=== PATIENT | female | born 1955 | race Hispanic/Latino ===

== ENCOUNTER 2018-02-14 15:48 | Inpatient (IN) | payer OTHER ==
[~2018-02-14] VITALS: Ht 152.4 cm; Wt 89.7 kg
[2018-02-14 16:47] LABS: BASOPHILS % (AUTO) 0.5 % (0.0-5.0); EOSINOPHILS % (AUTO) 0.5 % (0.0-8.0); HEMATOCRIT 35.9 % (36-48); LYMPHOCYTES % (AUTO) 12.5 % (21.0-51.0); MEAN CORPUSCULAR HEMOGLOBIN 27.7 pg (27.0-33.0); MEAN CORPUSCULAR HGB CONC 32.3 g/dL (32.0-36.0); MEAN CORPUSCULAR VOLUME 85.8 fL (79-99); MONOCYTES % (AUTO) 8.9 % (3.0-13.0); NEUTROPHILS % (AUTO) 77.6 % (40.0-77.0); PLATELET COUNT (AUTO) 312 K/uL (130-400); RED BLOOD CELL COUNT(AUTO) 4.18 MIL/uL (4.00-5.50); RED CELL DISTRIBUTION WIDTH 13.4 % (11.0-15.5); WHITE BLOOD COUNT (AUTO) 14.6 K/uL (4.8-10.8)
[2018-02-14 16:53] LABS: APPEARANCE,URINE Clear (CLEAR); BILIRUBIN,URINE Negative (NEGATIVE); COLOR,URINE Yellow (YELLOW); GLUCOSE, URINE (UA) >=1000 mg/dL (NEGATIVE); KETONES,URINE Negative (NEGATIVE); LEUKOCYTE ESTERASE ,URINE Negative (NEGATIVE); NITRATE,URINE Negative (NEGATIVE); OCCULT BLOOD,URINE Negative (NEGATIVE); PROTEIN,URINE POS 1+ (NEGATIVE)
[2018-02-14] MEDS ORDERED: SODIUM CHLORIDE 0.9% 1000ML 1,000 ML IV ONE (16:57)
[2018-02-14] MEDS ORDERED: ZOSYN 3.375GM+NS 50ML 50 ML IV ONE (16:57)
[2018-02-14] MEDS ORDERED: ONDANSETRON HCL 4 MG/2 ML VIAL ONE (16:57)
[2018-02-14] MEDS ORDERED: MORPHINE SULFATE 4 MG/1ML SYG ONE (16:58)
[2018-02-14] MEDS ORDERED: SODIUM CHLORIDE 0.9% 50 ML IV ONE (16:58)
[2018-02-14 17:01] LABS: CREATININE 0.7 mg/dL (0.5-1.5); POTASSIUM 3.8 mmol/L (3.5-5.1)
[2018-02-14 17:07] LABS: ALBUMIN 2.7 g/dL (3.5-5.0); BILIRUBIN,TOTAL 0.3 mg/dL (0.2-1.0); TOTAL PROTEIN, SERUM 7.3 g/dL (6.0-8.3)
[2018-02-14 17:25] LABS: BACTERIA,URINE None Seen /HPF (None Seen); RBC,URINE None Seen /HPF (0-1); WBC,URINE None Seen /HPF (0-1); YEAST,URINE BUDDING Few /HPF (None Seen)
[2018-02-14 17:50] LABS: ERYTHROCYTE SEDIMENTATION RATE 77 MM/HR (0-30)
[2018-02-14] MEDS ORDERED: DEXTROSE 50%-WATER 50 ML DISP.SYRIN IV PRN (18:15)
[2018-02-14] MEDS ORDERED: GLUCAGON 1MG KIT 1 MG ML IM PRN (18:15)
[2018-02-14] MEDS ORDERED: ONDANSETRON HCL 4 MG/2 ML VIAL IV PRN (18:15)
[2018-02-14] MEDS ORDERED: VANCOMYCIN PROTOCOL PER PHARMACY IV SCH (18:30)
[2018-02-14] MEDS ORDERED: COMPOUND IV REFRIGERATED 1 EACH IVSOLN MISC PRN (18:45)
[2018-02-14 19:16] LABS: HEMATOCRIT 32.6 % (36-48); MEAN CORPUSCULAR HEMOGLOBIN 28.4 pg (27.0-33.0); MEAN CORPUSCULAR HGB CONC 33.2 g/dL (32.0-36.0); MEAN CORPUSCULAR VOLUME 85.5 fL (79-99); PLATELET COUNT (AUTO) 278 K/uL (130-400); RED BLOOD CELL COUNT(AUTO) 3.81 MIL/uL (4.00-5.50); RED CELL DISTRIBUTION WIDTH 13.5 % (11.0-15.5); WHITE BLOOD COUNT (AUTO) 13.2 K/uL (4.8-10.8)
[2018-02-14 19:36] LABS: HEMOGLOBIN A1C 10.3 % (4.0-6.0)
[2018-02-14 19:40] VITALS: BP 134/77
[2018-02-14 20:23] LABS: ALBUMIN 2.3 g/dL (3.5-5.0); BILIRUBIN,TOTAL 0.4 mg/dL (0.2-1.0); CREATININE 0.6 mg/dL (0.5-1.5); POTASSIUM 3.6 mmol/L (3.5-5.1); TOTAL PROTEIN, SERUM 6.3 g/dL (6.0-8.3)
[2018-02-14] MEDS ORDERED: EZET10TA26 PO (20:29)
[2018-02-14] MEDS ORDERED: AMLO10TA6 PO (20:29)
[2018-02-14] MEDS ORDERED: ATOR40TA71 PO (20:29)
[2018-02-14] MEDS ORDERED: ASPI-1181 PO (20:29)
[2018-02-14] MEDS ORDERED: GLIP-220 PO (20:29)
[2018-02-14] MEDS ORDERED: METF-445 PO (20:29)
[2018-02-14] MEDS ORDERED: ERGO500014 PO (20:30)
[2018-02-14] MEDS: INSULIN HUMULIN R 100 UNIT/ML 3ML SQ SCH (21:00)
[2018-02-14] MEDS ORDERED: ZOSYN 3.375GM+NS 50ML 50 ML IV SCH (21:00)
[2018-02-14] MEDS: ACETAMINOPHEN 325 MG TAB PO PRN (21:22)
[2018-02-14] MEDS: VANCOMYCIN 1.25 GM in SODIUM CHLORIDE 0.9% 250 ML IV SCH (21:22)
[2018-02-14] MEDS: SODIUM CHLORIDE 0.9% 1000ML 1,000 ML IV SCH (21:22)
[2018-02-14 23:07] VITALS: BP 125/67
[2018-02-15] MEDS: SODIUM CHLORIDE 0.9% 1000ML 1,000 ML IV SCH ×3 (02:28→18:46)
[2018-02-15 03:22] VITALS: BP 137/72
[2018-02-15] MEDS: ACETAMINOPHEN 325 MG TAB PO PRN ×4 (03:25→18:48)
[2018-02-15 04:34] LABS: BASOPHILS % (AUTO) 1.1 % (0.0-5.0); HEMATOCRIT 30.6 % (36-48); LYMPHOCYTES % (AUTO) 20.4 % (21.0-51.0); MEAN CORPUSCULAR HEMOGLOBIN 29.2 pg (27.0-33.0); MEAN CORPUSCULAR HGB CONC 34.3 g/dL (32.0-36.0); MEAN CORPUSCULAR VOLUME 85.1 fL (79-99); MONOCYTES % (AUTO) 11.4 % (3.0-13.0); NEUTROPHILS % (AUTO) 65.1 % (40.0-77.0); PLATELET COUNT (AUTO) 311 K/uL (130-400); RED CELL DISTRIBUTION WIDTH 13.1 % (11.0-15.5); WHITE BLOOD COUNT (AUTO) 10.5 K/uL (4.8-10.8)
[2018-02-15 04:56] LABS: ALBUMIN 2.1 g/dL (3.5-5.0); BILIRUBIN,TOTAL 0.3 mg/dL (0.2-1.0); CREATININE 0.6 mg/dL (0.5-1.5); POTASSIUM 4.4 mmol/L (3.5-5.1); TOTAL PROTEIN, SERUM 5.9 g/dL (6.0-8.3)
[2018-02-15] MEDS: INSULIN HUMULIN R 100 UNIT/ML 3ML SQ SCH ×3 (05:54→16:30)
[2018-02-15 07:49] VITALS: BP 121/67
[2018-02-15] MEDS ORDERED: SODIUM CHLORIDE 0.9% 50 ML IV ONE (08:07)
[2018-02-15] MEDS: PANTOPRAZOLE SODIUM 40 MG TABLET.DR PO SCH (08:20)
[2018-02-15] MEDS: ENOXAPARIN SODIUM 30 MG/0.3 ML SQ SCH (08:21)
[2018-02-15] MEDS: ZOSYN 3.375GM+NS 50ML 50 ML IV SCH ×2 (08:22→16:48)
[2018-02-15] MEDS: VANCOMYCIN 1.25 GM in SODIUM CHLORIDE 0.9% 250 ML IV SCH ×2 (09:23→20:43)
[2018-02-15 11:00] VITALS: BP 122/70
[2018-02-15 15:59] VITALS: BP 137/78
[2018-02-15] MEDS: GLIPIZIDE XL 10MG TAB PO SCH (16:30)
[2018-02-15 19:44] VITALS: BP 139/72
[2018-02-15] MEDS: INSULIN GLARGINE 100 UNITS/ML 10 ML VIAL SQ SCH (20:40)
[2018-02-15] MEDS: INSULIN LISPRO 100 UNIT/ML 3ML SQ SCH (20:42)
[2018-02-15] MEDS: ATORVASTATIN CALCIUM 40 MG TABLET PO SCH (20:43)
[2018-02-15 23:19] VITALS: BP 131/70
[2018-02-16] MEDS: ZOSYN 3.375GM+NS 50ML 50 ML IV SCH ×3 (00:32→17:00)
[2018-02-16] MEDS: ACETAMINOPHEN 325 MG TAB PO PRN ×3 (02:02→18:00)
[2018-02-16 03:36] VITALS: BP 133/64
[2018-02-16 04:48] LABS: HEMATOCRIT 30.9 % (36-48); MEAN CORPUSCULAR HEMOGLOBIN 28.3 pg (27.0-33.0); MEAN CORPUSCULAR HGB CONC 33.2 g/dL (32.0-36.0); MEAN CORPUSCULAR VOLUME 85.1 fL (79-99); PLATELET COUNT (AUTO) 338 K/uL (130-400); RED BLOOD CELL COUNT(AUTO) 3.63 MIL/uL (4.00-5.50); RED CELL DISTRIBUTION WIDTH 13.4 % (11.0-15.5); WHITE BLOOD COUNT (AUTO) 9.8 K/uL (4.8-10.8)
[2018-02-16 04:57] LABS: CREATININE 0.7 mg/dL (0.5-1.5); CRP QUANTITATIVE 114.5 mg/L (0.00-9.0); POTASSIUM 3.5 mmol/L (3.5-5.1)
[2018-02-16 05:14] LABS: % IRON SATURATION 28.5 % (22-44)
[2018-02-16] MEDS: INSULIN LISPRO 100 UNIT/ML 3ML SQ SCH ×7 (06:29→21:00)
[2018-02-16] MEDS: SODIUM CHLORIDE 0.9% 1000ML 1,000 ML IV SCH (06:29)
[2018-02-16] MEDS: GLIPIZIDE XL 10MG TAB PO SCH ×2 (06:30→17:57)
[2018-02-16 08:04] VITALS: BP 170/89
[2018-02-16] MEDS: AMLODIPINE BESYLATE 5 MG TAB PO SCH (08:41)
[2018-02-16] MEDS: PANTOPRAZOLE SODIUM 40 MG TABLET.DR PO SCH (08:42)
[2018-02-16] MEDS: ASPIRIN 81 MG EC TAB PO SCH (08:42)
[2018-02-16] MEDS: ENOXAPARIN SODIUM 30 MG/0.3 ML SQ SCH (08:43)
[2018-02-16] MEDS: EZETIMIBE 10 MG TAB PO SCH (08:43)
[2018-02-16] MEDS: VANCOMYCIN 1.25 GM in SODIUM CHLORIDE 0.9% 250 ML IV SCH ×2 (08:43→20:13)
[2018-02-16 11:12] VITALS: BP 144/81
[2018-02-16] MEDS ORDERED: DIPH,PERTUSS(ACELL),TET VAC/PF 0.5 ML VIAL IM SCH (13:45)
[2018-02-16 16:22] VITALS: BP 171/77
[2018-02-16] MEDS ORDERED: LIDOCAINE HCL-MPF 1% 2ML VIAL IVP PRN (16:30)
[2018-02-16] MEDS ORDERED: POTASSIUM CHLORIDE 20MEQ/100ML 100 ML IV PRN (16:30)
[2018-02-16] MEDS ORDERED: POTASSIUM CHLORIDE 10% ELIXIR 20 MEQ/15 ML UDCUP PO PRN (16:30)
[2018-02-16] MEDS: POTASSIUM CHLORIDE 20 MEQ ERTAB PO PRN (18:00)
[2018-02-16 19:50] VITALS: BP 160/81
[2018-02-16] MEDS: ATORVASTATIN CALCIUM 40 MG TABLET PO SCH (20:13)
[2018-02-16] MEDS: INSULIN GLARGINE 100 UNITS/ML 10 ML VIAL SQ SCH (20:27)
[2018-02-17] VITALS (20 sets, daily range): BP systolic 128–176; BP diastolic 71–90
[2018-02-17] MEDS: ZOSYN 3.375GM+NS 50ML 50 ML IV SCH ×2 (00:03→09:50)
[2018-02-17] MEDS: ACETAMINOPHEN 325 MG TAB PO PRN (00:04)
[2018-02-17 06:09] LABS: BASOPHILS % (AUTO) 0.8 % (0.0-5.0); EOSINOPHILS % (AUTO) 4.4 % (0.0-8.0); HEMATOCRIT 33.7 % (36-48); LYMPHOCYTES % (AUTO) 18.4 % (21.0-51.0); MEAN CORPUSCULAR HEMOGLOBIN 28.9 pg (27.0-33.0); MEAN CORPUSCULAR HGB CONC 33.7 g/dL (32.0-36.0); MEAN CORPUSCULAR VOLUME 85.5 fL (79-99); MONOCYTES % (AUTO) 8.6 % (3.0-13.0); NEUTROPHILS % (AUTO) 67.8 % (40.0-77.0); PLATELET COUNT (AUTO) 418 K/uL (130-400); RED BLOOD CELL COUNT(AUTO) 3.93 MIL/uL (4.00-5.50); RED CELL DISTRIBUTION WIDTH 13.4 % (11.0-15.5); WHITE BLOOD COUNT (AUTO) 8.4 K/uL (4.8-10.8)
[2018-02-17 06:15] LABS: CREATININE 0.9 mg/dL (0.5-1.5)
[2018-02-17] MEDS: GLIPIZIDE XL 10MG TAB PO SCH ×2 (06:21→18:17)
[2018-02-17] MEDS: INSULIN LISPRO 100 UNIT/ML 3ML SQ SCH ×7 (06:35→21:35)
[2018-02-17] MEDS: ASPIRIN 81 MG EC TAB PO SCH (09:00)
[2018-02-17] MEDS: ENOXAPARIN SODIUM 30 MG/0.3 ML SQ SCH (09:00)
[2018-02-17] MEDS: PANTOPRAZOLE SODIUM 40 MG TABLET.DR PO SCH (09:00)
[2018-02-17] MEDS: EZETIMIBE 10 MG TAB PO SCH (09:00)
[2018-02-17] MEDS: AMLODIPINE BESYLATE 5 MG TAB PO SCH (09:49)
[2018-02-17] MEDS: VANCOMYCIN 1.25 GM in SODIUM CHLORIDE 0.9% 250 ML IV SCH (09:50)
[2018-02-17] MEDS: WATER FOR INJECTION,STERILE 20 ML VIAL IJ SCH (13:15)
[2018-02-17] MEDS: CEFTRIAXONE SODIUM 2 GM VIAL IVP SCH ×2 (13:15→14:00)
[2018-02-17] MEDS ORDERED: SODIUM CHLORIDE 0.9% 1000ML 1,000 ML IV ONE (13:55)
[2018-02-17] MEDS ORDERED: KETAMINE 50MG/ML SYRINGE 50 MG/ML DISP.SYRIN IV ONE (13:55)
[2018-02-17] MEDS ORDERED: PROPOFOL 10 MG/ML 20ML VIAL IV ONE ×2 (13:57→14:53)
[2018-02-17] MEDS ORDERED: LIDOCAINE PF 2% 5ML ABBOJECT ONE (13:57)
[2018-02-17] MEDS ORDERED: FENTANYL CITRATE PF 50 MCG/1 ML 2ML VIAL ONE (13:58)
[2018-02-17] MEDS: LIDOCAINE HCL 1% 20 ML VIAL ONE (14:37)
[2018-02-17] MEDS: BUPIVACAINE/PF 0.5% 30ML VIAL ONE (14:37)
[2018-02-17] MEDS ORDERED: MIDAZOLAM HCL 1 MG/ML 2ML VIAL ONE (14:41)
[2018-02-17] MEDS ORDERED: MORPHINE SULFATE 2 MG/ML 1ML SYG ONE (15:15)
[2018-02-17] MEDS: ATORVASTATIN CALCIUM 40 MG TABLET PO SCH (21:34)
[2018-02-17] MEDS: INSULIN GLARGINE 100 UNITS/ML 10 ML VIAL SQ SCH (21:36)
[2018-02-18 03:45] VITALS: BP 145/74
[2018-02-18 04:25] LABS: BASOPHILS % (AUTO) 0.6 % (0.0-5.0); EOSINOPHILS % (AUTO) 2.7 % (0.0-8.0); HEMATOCRIT 33.9 % (36-48); LYMPHOCYTES % (AUTO) 15.8 % (21.0-51.0); MEAN CORPUSCULAR HGB CONC 32.8 g/dL (32.0-36.0); MEAN CORPUSCULAR VOLUME 85.4 fL (79-99); MONOCYTES % (AUTO) 8.9 % (3.0-13.0); PLATELET COUNT (AUTO) 414 K/uL (130-400); RED BLOOD CELL COUNT(AUTO) 3.97 MIL/uL (4.00-5.50); RED CELL DISTRIBUTION WIDTH 13.2 % (11.0-15.5)
[2018-02-18 04:40] LABS: CREATININE 0.7 mg/dL (0.5-1.5); POTASSIUM 3.7 mmol/L (3.5-5.1)
[2018-02-18] MEDS: ACETAMINOPHEN 325 MG TAB PO PRN (06:05)
[2018-02-18] MEDS: INSULIN LISPRO 100 UNIT/ML 3ML SQ SCH ×7 (07:30→21:29)
[2018-02-18 07:45] VITALS: BP 140/73
[2018-02-18] MEDS: CLOPIDOGREL BISULFATE 75 MG TAB PO SCH (08:55)
[2018-02-18] MEDS: PANTOPRAZOLE SODIUM 40 MG TABLET.DR PO SCH (08:55)
[2018-02-18] MEDS: EZETIMIBE 10 MG TAB PO SCH (08:55)
[2018-02-18] MEDS: ASPIRIN 81 MG EC TAB PO SCH (08:55)
[2018-02-18] MEDS: AMLODIPINE BESYLATE 5 MG TAB PO SCH (08:56)
[2018-02-18] MEDS: ENOXAPARIN SODIUM 30 MG/0.3 ML SQ SCH (08:56)
[2018-02-18] MEDS: GLIPIZIDE XL 10MG TAB PO SCH ×2 (08:56→15:39)
[2018-02-18 11:21] VITALS: BP 132/82
[2018-02-18] MEDS: WATER FOR INJECTION,STERILE 20 ML VIAL IJ SCH (14:11)
[2018-02-18] MEDS: CEFTRIAXONE SODIUM 2 GM VIAL IVP SCH (14:11)
[2018-02-18] MEDS ORDERED: HYDROCODONE/ACETAMINOPHEN 5/325 MG TAB ONE (15:22)
[2018-02-18 16:29] VITALS: BP 136/76
[2018-02-18] MEDS ORDERED: HYDROMORPHONE 1 MG/1 ML AMP IVP PRN (19:15)
[2018-02-18] MEDS ORDERED: MORPHINE SULFATE 2 MG/ML 1ML SYG IVP PRN (19:15)
[2018-02-18 20:45] VITALS: BP 140/70
[2018-02-18] MEDS: ATORVASTATIN CALCIUM 40 MG TABLET PO SCH (21:25)
[2018-02-18] MEDS: INSULIN GLARGINE 100 UNITS/ML 10 ML VIAL SQ SCH (21:30)
[2018-02-19] VITALS (14 sets, daily range): BP systolic 120–166; BP diastolic 70–87
[2018-02-19 04:34] LABS: INR 0.99 (0.85-1.15); PARTIAL THROMBOPLASTIN TIME 28.7 SEC (26.3-35.5); PROTHROMBIN TIME 10.4 SEC (9.6-11.6)
[2018-02-19] MEDS: INSULIN LISPRO 100 UNIT/ML 3ML SQ SCH ×7 (06:14→21:00)
[2018-02-19] MEDS: GLIPIZIDE XL 10MG TAB PO SCH ×2 (07:07→17:29)
[2018-02-19] MEDS ORDERED: HEPARIN SODIUM 1000UNIT/ML 10ML VIAL ONE (07:22)
[2018-02-19] MEDS ORDERED: NITROGLYCERIN 5 MG/ML 10 ML VIAL IV ONE (07:22)
[2018-02-19] MEDS ORDERED: IODIXANOL 320 MG/ML 100 ML VIAL ONE (07:23)
[2018-02-19] MEDS ORDERED: LIDOCAINE HCL 2% 20ML ONE (07:23)
[2018-02-19] MEDS ORDERED: MIDAZOLAM HCL 1 MG/ML 2ML VIAL ONE (07:56)
[2018-02-19] MEDS ORDERED: FENTANYL CITRATE PF 50 MCG/1 ML 2ML VIAL ONE (07:57)
[2018-02-19] MEDS ORDERED: LACTULOSE 20 GM/30 ML UDCUP PO PRN (08:00)
[2018-02-19] MEDS ORDERED: SODIUM CHLORIDE 0.9% 1000ML 1,000 ML IV SCH (08:55)
[2018-02-19] MEDS: CLOPIDOGREL BISULFATE 75 MG TAB PO SCH (09:00)
[2018-02-19] MEDS: ASPIRIN 81 MG EC TAB PO SCH (09:00)
[2018-02-19] MEDS ORDERED: ASPIRIN 81MG TAB.CHEW ONE (09:41)
[2018-02-19] MEDS: EZETIMIBE 10 MG TAB PO SCH (13:05)
[2018-02-19] MEDS: PANTOPRAZOLE SODIUM 40 MG TABLET.DR PO SCH (13:05)
[2018-02-19] MEDS: AMLODIPINE BESYLATE 5 MG TAB PO SCH (13:05)
[2018-02-19] MEDS: DOCUSATE SODIUM 100 MG CAP PO SCH ×2 (13:05→20:40)
[2018-02-19] MEDS: CEFTRIAXONE SODIUM 2 GM VIAL IVP SCH (13:06)
[2018-02-19] MEDS: WATER FOR INJECTION,STERILE 20 ML VIAL IJ SCH (13:09)
[2018-02-19] MEDS: ENOXAPARIN SODIUM 30 MG/0.3 ML SQ SCH (13:15)
[2018-02-19] MEDS: HYDROCODONE/ACETAMINOPHEN 5/325 MG TAB PO PRN (13:22)
[2018-02-19] MEDS ORDERED: CEPH500C2 PO (13:33)
[2018-02-19] MEDS: INSULIN GLARGINE 100 UNITS/ML 10 ML VIAL SQ SCH (20:40)
[2018-02-19] MEDS: ATORVASTATIN CALCIUM 40 MG TABLET PO SCH (20:40)
[2018-02-20] VITALS (7 sets, daily range): BP systolic 133–144; BP diastolic 67–83
[2018-02-20 06:28] LABS: BASOPHILS % (AUTO) 0.6 % (0.0-5.0); EOSINOPHILS % (AUTO) 4.2 % (0.0-8.0); HEMATOCRIT 28.7 % (36-48); LYMPHOCYTES % (AUTO) 19.9 % (21.0-51.0); MEAN CORPUSCULAR HEMOGLOBIN 28.1 pg (27.0-33.0); MEAN CORPUSCULAR VOLUME 85.3 fL (79-99); MONOCYTES % (AUTO) 8.5 % (3.0-13.0); NEUTROPHILS % (AUTO) 66.8 % (40.0-77.0); PLATELET COUNT (AUTO) 352 K/uL (130-400); RED BLOOD CELL COUNT(AUTO) 3.36 MIL/uL (4.00-5.50); RED CELL DISTRIBUTION WIDTH 13.6 % (11.0-15.5); WHITE BLOOD COUNT (AUTO) 10.5 K/uL (4.8-10.8)
[2018-02-20] MEDS: GLIPIZIDE XL 10MG TAB PO SCH ×2 (06:35→16:50)
[2018-02-20 06:36] LABS: CREATININE 0.6 mg/dL (0.5-1.5); POTASSIUM 3.9 mmol/L (3.5-5.1)
[2018-02-20] MEDS: INSULIN LISPRO 100 UNIT/ML 3ML SQ SCH ×6 (06:38→22:49)
[2018-02-20] MEDS: CLOPIDOGREL BISULFATE 75 MG TAB PO SCH (10:00)
[2018-02-20] MEDS: PANTOPRAZOLE SODIUM 40 MG TABLET.DR PO SCH (10:00)
[2018-02-20] MEDS: ASPIRIN 81 MG EC TAB PO SCH (10:00)
[2018-02-20] MEDS: DOCUSATE SODIUM 100 MG CAP PO SCH ×2 (10:00→22:38)
[2018-02-20] MEDS: EZETIMIBE 10 MG TAB PO SCH (10:00)
[2018-02-20] MEDS: AMLODIPINE BESYLATE 5 MG TAB PO SCH (10:01)
[2018-02-20] MEDS: LACTULOSE 20 GM/30 ML UDCUP PO PRN ×2 (10:01→22:38)
[2018-02-20] MEDS: ENOXAPARIN SODIUM 30 MG/0.3 ML SQ SCH (10:02)
[2018-02-20] MEDS ORDERED: POLYETHYLENE GLYCOL 3350 17 GM POWD.PACK PO PRN (10:15)
[2018-02-20] MEDS: CEFTRIAXONE SODIUM 2 GM VIAL IVP SCH (12:53)
[2018-02-20] MEDS: WATER FOR INJECTION,STERILE 20 ML VIAL IJ SCH (12:53)
[2018-02-20] MEDS: HYDROCODONE/ACETAMINOPHEN 5/325 MG TAB PO PRN (16:57)
[2018-02-20] MEDS: ATORVASTATIN CALCIUM 40 MG TABLET PO SCH (22:38)
[2018-02-20] MEDS: INSULIN GLARGINE 100 UNITS/ML 10 ML VIAL SQ SCH (22:47)
[2018-02-21 04:46] LABS: BASOPHILS % (AUTO) 0.6 % (0.0-5.0); EOSINOPHILS % (AUTO) 4.3 % (0.0-8.0); HEMATOCRIT 28.5 % (36-48); MEAN CORPUSCULAR HEMOGLOBIN 28.8 pg (27.0-33.0); MEAN CORPUSCULAR HGB CONC 33.7 g/dL (32.0-36.0); MEAN CORPUSCULAR VOLUME 85.4 fL (79-99); MONOCYTES % (AUTO) 10.4 % (3.0-13.0); NEUTROPHILS % (AUTO) 67.7 % (40.0-77.0); PLATELET COUNT (AUTO) 398 K/uL (130-400); RED BLOOD CELL COUNT(AUTO) 3.33 MIL/uL (4.00-5.50); RED CELL DISTRIBUTION WIDTH 13.4 % (11.0-15.5)
[2018-02-21 04:48] VITALS: BP 147/75
[2018-02-21 04:53] LABS: CREATININE 0.7 mg/dL (0.5-1.5)
[2018-02-21] MEDS: INSULIN LISPRO 100 UNIT/ML 3ML SQ SCH ×7 (06:19→21:00)
[2018-02-21] MEDS: GLIPIZIDE XL 10MG TAB PO SCH ×2 (07:43→16:56)
[2018-02-21 07:56] VITALS: BP 157/74
[2018-02-21] MEDS: ASPIRIN 81 MG EC TAB PO SCH (09:47)
[2018-02-21] MEDS: PANTOPRAZOLE SODIUM 40 MG TABLET.DR PO SCH (09:47)
[2018-02-21] MEDS: AMLODIPINE BESYLATE 5 MG TAB PO SCH (09:47)
[2018-02-21] MEDS: CLOPIDOGREL BISULFATE 75 MG TAB PO SCH (09:47)
[2018-02-21] MEDS: DOCUSATE SODIUM 100 MG CAP PO SCH ×2 (09:47→21:20)
[2018-02-21] MEDS: EZETIMIBE 10 MG TAB PO SCH (09:47)
[2018-02-21 11:09] LABS: INR 0.98 (0.85-1.15); PARTIAL THROMBOPLASTIN TIME 25.3 SEC (26.3-35.5); PROTHROMBIN TIME 10.3 SEC (9.6-11.6)
[2018-02-21 12:03] VITALS: BP 155/74
[2018-02-21] MEDS: CEFTRIAXONE SODIUM 2 GM VIAL IVP SCH (12:34)
[2018-02-21] MEDS: WATER FOR INJECTION,STERILE 20 ML VIAL IJ SCH (12:39)
[2018-02-21 16:45] VITALS: BP 157/87
[2018-02-21 19:00] VITALS: BP 142/73
[2018-02-21] MEDS: ATORVASTATIN CALCIUM 40 MG TABLET PO SCH (21:20)
[2018-02-21 23:00] VITALS: BP 132/71
[2018-02-22] VITALS (13 sets, daily range): BP systolic 118–147; BP diastolic 65–80
[2018-02-22] MEDS: INSULIN GLARGINE 100 UNITS/ML 10 ML VIAL SQ SCH ×2 (00:39→21:33)
[2018-02-22 04:25] LABS: BASOPHILS % (AUTO) 0.7 % (0.0-5.0); EOSINOPHILS % (AUTO) 3.4 % (0.0-8.0); HEMATOCRIT 29.1 % (36-48); LYMPHOCYTES % (AUTO) 18.4 % (21.0-51.0); MEAN CORPUSCULAR HEMOGLOBIN 28.4 pg (27.0-33.0); MEAN CORPUSCULAR HGB CONC 33.2 g/dL (32.0-36.0); MEAN CORPUSCULAR VOLUME 85.4 fL (79-99); NEUTROPHILS % (AUTO) 68.5 % (40.0-77.0); NUCLEATED RED BLOOD CELLS 0.1 % (0.0-0.19); PLATELET COUNT (AUTO) 380 K/uL (130-400); RED BLOOD CELL COUNT(AUTO) 3.41 MIL/uL (4.00-5.50); RED CELL DISTRIBUTION WIDTH 13.6 % (11.0-15.5); WHITE BLOOD COUNT (AUTO) 11.2 K/uL (4.8-10.8)
[2018-02-22 04:45] LABS: ALBUMIN 2.2 g/dL (3.5-5.0); BILIRUBIN,TOTAL 0.3 mg/dL (0.2-1.0); CREATININE 0.6 mg/dL (0.5-1.5); POTASSIUM 3.6 mmol/L (3.5-5.1); TOTAL PROTEIN, SERUM 6.4 g/dL (6.0-8.3)
[2018-02-22] MEDS: GLIPIZIDE XL 10MG TAB PO SCH ×2 (06:57→16:55)
[2018-02-22] MEDS: INSULIN LISPRO 100 UNIT/ML 3ML SQ SCH ×7 (06:58→21:00)
[2018-02-22] MEDS: ASPIRIN 81 MG EC TAB PO SCH (09:00)
[2018-02-22] MEDS: CLOPIDOGREL BISULFATE 75 MG TAB PO SCH (09:00)
[2018-02-22] MEDS: EZETIMIBE 10 MG TAB PO SCH (09:23)
[2018-02-22] MEDS: AMLODIPINE BESYLATE 5 MG TAB PO SCH (09:23)
[2018-02-22] MEDS: DOCUSATE SODIUM 100 MG CAP PO SCH ×2 (09:23→21:45)
[2018-02-22] MEDS: PANTOPRAZOLE SODIUM 40 MG TABLET.DR PO SCH (09:23)
[2018-02-22] MEDS ORDERED: THROMBIN-JMI 5000 UNIT/VIAL TP SCH (10:45)
[2018-02-22] MEDS ORDERED: FENTANYL CITRATE PF 50 MCG/1 ML 2ML VIAL ONE (12:16)
[2018-02-22] MEDS: CEFTRIAXONE SODIUM 2 GM VIAL IVP SCH (13:38)
[2018-02-22] MEDS: WATER FOR INJECTION,STERILE 20 ML VIAL IJ SCH (13:38)
[2018-02-22] MEDS: POTASSIUM CHLORIDE 20 MEQ ERTAB PO PRN (21:45)
[2018-02-22] MEDS: ATORVASTATIN CALCIUM 40 MG TABLET PO SCH (21:45)
[2018-02-23] MEDS: HYDROCODONE/ACETAMINOPHEN 5/325 MG TAB PO PRN ×2 (00:22→06:55)
[2018-02-23] MEDS: POTASSIUM CHLORIDE 20 MEQ ERTAB PO PRN (00:22)
[2018-02-23 03:20] VITALS: BP 135/72
[2018-02-23] MEDS: INSULIN LISPRO 100 UNIT/ML 3ML SQ SCH ×6 (06:29→20:39)
[2018-02-23] MEDS: GLIPIZIDE XL 10MG TAB PO SCH (06:51)
[2018-02-23 07:30] VITALS: BP 119/71
[2018-02-23] MEDS ORDERED: ENOXAPARIN SODIUM 30 MG/0.3 ML SQ SCH (09:00)
[2018-02-23] MEDS: DOCUSATE SODIUM 100 MG CAP PO SCH ×2 (09:21→20:34)
[2018-02-23] MEDS: CLOPIDOGREL BISULFATE 75 MG TAB PO SCH (09:22)
[2018-02-23] MEDS: ASPIRIN 81 MG EC TAB PO SCH (09:22)
[2018-02-23] MEDS: AMLODIPINE BESYLATE 5 MG TAB PO SCH (09:22)
[2018-02-23] MEDS: PANTOPRAZOLE SODIUM 40 MG TABLET.DR PO SCH (09:22)
[2018-02-23] MEDS: EZETIMIBE 10 MG TAB PO SCH (09:22)
[2018-02-23] MEDS ORDERED: CLOP75TA14 PO (10:05)
[2018-02-23 11:00] VITALS: BP 122/68
[2018-02-23] MEDS: CEFTRIAXONE SODIUM 2 GM VIAL IVP SCH (12:15)
[2018-02-23] MEDS: WATER FOR INJECTION,STERILE 20 ML VIAL IJ SCH (12:15)
[2018-02-23 16:00] VITALS: BP 117/65
[2018-02-23 20:01] VITALS: BP 121/66
[2018-02-23] MEDS: ATORVASTATIN CALCIUM 40 MG TABLET PO SCH (20:34)
[2018-02-23] MEDS: INSULIN GLARGINE 100 UNITS/ML 10 ML VIAL SQ SCH (20:39)
== END 2018-02-23 21:25 | disposition home or self-care (01) | DRG 239 ==
LOC: EDH 15:48 → EDHIP 15:49 → 4BH 19:58
PROVIDERS: ADMIT Internal Medicine; ATTEND Internal Medicine
PROC: 0Y6N0ZD Detachment at Left Foot, Partial 4th Ray, Open Approach (ICD-10-PCS; 2018-02-17)
PROC: 047U3DZ Dilation of Left Peroneal Artery with Intraluminal Device, Percutaneous Approach (ICD-10-PCS; principal; 2018-02-19)
PROC: B4101ZZ Fluoroscopy of Abdominal Aorta using Low Osmolar Contrast (ICD-10-PCS; 2018-02-19)
PROC: B41G1ZZ Fluoroscopy of Left Lower Extremity Arteries using Low Osmolar Contrast (ICD-10-PCS; 2018-02-19)
PROC: 3E053GC Introduction of Other Therapeutic Substance into Peripheral Artery, Percutaneous Approach (ICD-10-PCS; 2018-02-21)
DX: E11.52 Type 2 diabetes mellitus with diabetic peripheral angiopathy with gangrene (principal); M72.6 Necrotizing fasciitis; L02.612 Cutaneous abscess of left foot; L03.116 Cellulitis of left lower limb; M86.9 Osteomyelitis, unspecified; I96 Gangrene, not elsewhere classified; E11.65 Type 2 diabetes mellitus with hyperglycemia; D72.829 Elevated white blood cell count, unspecified; Z68.38 Body mass index [BMI] 38.0-38.9, adult; E66.9 Obesity, unspecified; E11.621 Type 2 diabetes mellitus with foot ulcer; E11.69 Type 2 diabetes mellitus with other specified complication; E78.00 Pure hypercholesterolemia, unspecified; E78.5 Hyperlipidemia, unspecified; G47.00 Insomnia, unspecified; I10 Essential (primary) hypertension; I72.4 Aneurysm of artery of lower extremity; I72.8 Aneurysm of other specified arteries; K59.00 Constipation, unspecified; L97.519 Non-pressure chronic ulcer of other part of right foot with unspecified severity; S30.1XXA Contusion of abdominal wall, initial encounter; Z79.02 Long term (current) use of antithrombotics/antiplatelets; Z90.49 Acquired absence of other specified parts of digestive tract; Y93.89 Activity, other specified; Y92.89 Other specified places as the place of occurrence of the external cause; Y99.8 Other external cause status
CPT/HCPCS: 36002; 36415; 37230; 73630; 73718; 75630; 76882; 80048; 80053; 80061; 80202; 81001; 82550; 82948; 83036; 83540; 83550; 83605; 84132; 85025; 85027; 85610; 85651; 85730; 86140; 87040; 87070; 87076; 87088; 87205; 88304; 88305; 88311; 90715; 93925; 93926; 99156; 99157; 99291; A4218; C1769; C1893; C1894; J0696; J1644; J1650; J1815; J2001; J2250; J2270; J2405; J2543; J2704; J3010; J3370; J3490; J7030; Q9967

== ENCOUNTER → 2020-01-11 | Outpatient (CLI) | payer MEDICARE ==
[~2020-01-11] MED LIST: AMLO10TA7 PO; ASPI-1443 PO; ATOR40TA71 PO; CEPH500C2 PO; CLOP75TA14 PO; ERGO500014 PO; EZET10TA48 PO; GLIP10TA19 PO; METF-445 PO; REGADENOSON 0.4 MG/5 ML PF SYG IVP SCH
== END | disposition home or self-care (01) ==
LOC: SHCH 08:18
PROVIDERS: ATTEND Internal Medicine Cardiovascular Disease
DX: Z01.810 Encounter for preprocedural cardiovascular examination (principal); I25.89 Other forms of chronic ischemic heart disease; R53.83 Other fatigue
CPT/HCPCS: 78452; 93017; 96374; A9500 ×2; J2785